=== PATIENT | female | born 1990 | race Hispanic/Latino ===

== ENCOUNTER 2023-06-30 05:03 | Emergency (ER) | payer BC ==
[~2023-06-30] VITALS: Ht 162.6 cm; Wt 86.6 kg
[2023-06-30] MEDS ORDERED: 0.9%NACL 1000ML 1,000 ML IV ONE ×2 (05:16→05:30)
[2023-06-30] MEDS ORDERED: ONDANSETRON 4MG INJ ONE (05:16)
[2023-06-30 05:26] LABS: APPEARANCE,URINE CLOUDY (CLEAR); BILIRUBIN,URINE NEGATIVE (NEGATIVE); COLOR,URINE LIGHT-YELLOW (YELLOW); GLUCOSE, URINE (UA) NEGATIVE (NEGATIVE); KETONES,URINE 60 mg/dL (NEGATIVE); LEUKOCYTE ESTERASE ,URINE NEGATIVE Leu/uL (NEGATIVE); NITRATE,URINE NEGATIVE (NEGATIVE); PROTEIN,URINE NEGATIVE (NEGATIVE); UROBILINOGEN,URINE 0.2 mg/dL (0.2-1.0)
[2023-06-30] MEDS ORDERED: ONDANSETRON 4MG INJ IVP ONE (05:30)
[2023-06-30 05:31] LABS: ADD UA MICROSCOPIC YES
[2023-06-30 05:33] LABS: MUCUS,URINE RARE LPF (None Seen); SQUAMOUS EPITHELIAL CELL,UR RARE /HPF (0-2)
[2023-06-30 05:36] LABS: BASOPHILS # (AUTO) 0.04 K/uL (0.00-0.20); BASOPHILS % (AUTO) 0.3 % (0.0-5.0); EOSINOPHILS # (AUTO) 0.08 K/uL (0.00-0.70); EOSINOPHILS % (AUTO) 0.5 % (0.0-8.0); HEMATOCRIT 38.6 % (36-48); IMMATURE GRANULOCYTE ABSOLUTE 0.07 K/uL (0-1); LYMPHOCYTES # (AUTO) 2.3 K/uL (1.0-4.8); LYMPHOCYTES % (AUTO) 15.5 % (21.0-51.0); MEAN CORPUSCULAR HEMOGLOBIN 30.6 pg (27.0-33.0); MEAN CORPUSCULAR HGB CONC 34.2 g/dL (32.0-36.0); MEAN CORPUSCULAR VOLUME 89.4 fL (79-99); MONOCYTES % (AUTO) 6.4 % (3.0-13.0); NEUTROPHILS # (AUTO) 11.6 K/uL (1.8-7.7); NEUTROPHILS % (AUTO) 76.8 % (40.0-77.0); PLATELET COUNT (AUTO) 296 K/uL (130-400); RED BLOOD CELL COUNT(AUTO) 4.32 MIL/uL (4.00-5.50); RED CELL DISTRIBUTION WIDTH 12.3 % (11.0-15.5); WHITE BLOOD COUNT (AUTO) 15.1 K/uL (4.8-10.8)
[2023-06-30 05:46] LABS: SARS-CoV-2, RNA, NAAT NEGATIVE SARS CoV-2 (NEGATIVE)
[2023-06-30 05:49] LABS: INFLUENZA TYPE A Negative For Type A (NEGATIVE); INFLUENZA TYPE B Negative For Type B (NEGATIVE)
[2023-06-30 05:54] LABS: ALBUMIN 4.1 g/dL (3.5-5.0); BILIRUBIN,TOTAL 0.6 mg/dL (0.2-1.0); CREATININE 0.8 mg/dL (0.5-1.5); POTASSIUM 3.4 mmol/L (3.5-5.1); TOTAL PROTEIN, SERUM 7.7 g/dL (6.0-8.3)
[2023-06-30] MEDS ORDERED: KETOROLAC 30MG VIAL (30MG/ML) IVP ONE (06:30)
[2023-06-30 09:20] VITALS: BP 108/46; PULSE 74; RESP 16; O2SAT 99
[2023-06-30] MEDS ORDERED: ONDA4TAB10 PO (09:45)
== END 2023-06-30 09:53 | disposition home or self-care (01) ==
LOC: EDBD 05:03 → EDH 05:03
DX: R11.2 Nausea with vomiting, unspecified (principal); R10.12 Left upper quadrant pain; Z20.822 Contact with and (suspected) exposure to COVID-19
CPT/HCPCS: 99284; 74176; 96374; 96361; 87635; 96375; 80053; 83690; 85025; 87804 ×2; 81001; 81025; 36415; C9803; J7030; J2405; J1885

== ENCOUNTER 2024-01-19 08:36 | Emergency (ER) | payer BC ==
[~2024-01-19] VITALS: Ht 162.6 cm; Wt 86.2 kg
[~2024-01-19 08:36] MED LIST: ONDA4TAB10 PO
[2024-01-19 08:38] VITALS: BP_SYST 129; PULSE 67; RESP 20
[2024-01-19 09:01] LABS: APPEARANCE,URINE CLEAR (CLEAR); BILIRUBIN,URINE NEGATIVE (NEGATIVE); COLOR,URINE LIGHT-YELLOW (YELLOW); GLUCOSE, URINE (UA) NEGATIVE (NEGATIVE); KETONES,URINE 60 mg/dL (NEGATIVE); LEUKOCYTE ESTERASE ,URINE 25 Leu/uL (NEGATIVE); NITRATE,URINE NEGATIVE (NEGATIVE); OCCULT BLOOD,URINE NEGATIVE (NEGATIVE); PROTEIN,URINE 10 mg/dL (NEGATIVE); UROBILINOGEN,URINE 0.2 mg/dL (0.2-1.0)
[2024-01-19 09:02] LABS: ADD UA MICROSCOPIC YES; HCG,QUALITATIVE URINE NEGATIVE (NEGATIVE)
[2024-01-19 09:08] LABS: MUCUS,URINE RARE LPF (None Seen); SQUAMOUS EPITHELIAL CELL,UR RARE /HPF (0-2)
[2024-01-19 09:09] LABS: BASOPHILS # (AUTO) 0.03 K/uL (0.00-0.20); BASOPHILS % (AUTO) 0.3 % (0.0-5.0); EOSINOPHILS # (AUTO) 0.03 K/uL (0.00-0.70); EOSINOPHILS % (AUTO) 0.3 % (0.0-8.0); HEMATOCRIT 38.8 % (36-48); IMMATURE GRANULOCYTE ABSOLUTE 0.04 K/uL (0-1); LYMPHOCYTES # (AUTO) 1.3 K/uL (1.0-4.8); LYMPHOCYTES % (AUTO) 10.8 % (21.0-51.0); MEAN CORPUSCULAR HEMOGLOBIN 30.7 pg (27.0-33.0); MEAN CORPUSCULAR HGB CONC 34.5 g/dL (32.0-36.0); MEAN CORPUSCULAR VOLUME 88.8 fL (79-99); MONOCYTES # (AUTO) 0.4 K/uL (0.1-1.0); MONOCYTES % (AUTO) 3.8 % (3.0-13.0); NEUTROPHILS # (AUTO) 9.7 K/uL (1.8-7.7); NEUTROPHILS % (AUTO) 84.5 % (40.0-77.0); PLATELET COUNT (AUTO) 299 K/uL (130-400); RED BLOOD CELL COUNT(AUTO) 4.37 MIL/uL (4.00-5.50); RED CELL DISTRIBUTION WIDTH 12.1 % (11.0-15.5); WHITE BLOOD COUNT (AUTO) 11.5 K/uL (4.8-10.8)
[2024-01-19] MEDS: FAMOTIDINE 20MG VIAL IV ONE (09:10)
[2024-01-19] MEDS: MORPHINE 2 MG SYG IVP ONE (09:10)
[2024-01-19] MEDS: METOCLOPRAMIDE 10 MG/2 ML VIAL IVP ONE (09:10)
[2024-01-19] MEDS: LACTATED RINGERS 1000ML 1,095 ML IV ONE (09:11)
[2024-01-19 09:20] LABS: CREATININE 0.8 mg/dL (0.5-1.5); POTASSIUM 3.8 mmol/L (3.5-5.1)
[2024-01-19 09:25] LABS: ALBUMIN 3.8 g/dL (3.5-5.0); BILIRUBIN,TOTAL 0.8 mg/dL (0.2-1.0); TOTAL PROTEIN, SERUM 7.4 g/dL (6.0-8.3)
[2024-01-19] MEDS: MORPHINE 2 MG SYG ONE (09:25)
[2024-01-19] MEDS: 0.9%NACL 1000ML 1,000 ML IV ONE (09:25)
[2024-01-19] MEDS: CEFTRIAXONE 2GM VIAL IVPB ONE (09:38)
[2024-01-19] MEDS ORDERED: CEPH500T PO (10:14)
[2024-01-19] MEDS ORDERED: METO-296 PO (10:14)
[2024-01-19] MEDS ORDERED: POLY17PO4 PO (10:14)
[2024-01-19] MEDS ORDERED: PHEN-847 PO (10:14)
[2024-01-19] MEDS ORDERED: FAMO-136 PO (10:14)
== END 2024-01-19 14:21 | disposition home or self-care (01) ==
LOC: EDH 08:36
DX: N39.0 Urinary tract infection, site not specified (principal); K80.50 Calculus of bile duct without cholangitis or cholecystitis without obstruction; K80.20 Calculus of gallbladder without cholecystitis without obstruction
CPT/HCPCS: 99284; 96365; 96375; 76705; 80053; 83690; 85025; 87088; 81001; 81025; 36415; J7120; J3490; J2270; J0696; J2765

== ENCOUNTER 2025-11-19 17:53 | Emergency (ER) | payer BC ==
[~2025-11-19] VITALS: Ht 160 cm; Wt 73.9 kg
[~2025-11-19 17:53] MED LIST changes: +CEPH500T PO; +FAMO-136 PO; +METO-296 PO; +ONDA-243 PO; -ONDA4TAB10 PO; +PHEN-847 PO; +POLY17PO4 PO
--- NOTE | 2025-11-19 18:23 | ERN ---
ED Note History of Present Illness Stated Complaint: LEFT BREAST PAIN X ONE WEEK Chief Complaint: Breast Problem Time Seen by MD: 18:01 Dictation: PATIENT IS A 35-YEAR-OLD FEMALE COMING IN TODAY WITH COMPLAINTS OF LEFT BREASTS PAIN WITHOUT FEVER CHILLS ONSET WAS ONE WEEK PRIOR TO ARRIVAL. SHE STATES SHE HAD HAD UNPROTECTED SEX AND THEN TOOK A PLAN B TABLET, THE PAIN STARTED THE NEXT DAY. SHE DENIES ANY SKIN CHANGES NIPPLE EVERSION OR DISCHARGE. NO PRIMARY CARE DOCTOR SHE SAID SHE DOES HAVE AN APPOINTMENT WITH A DOCTOR ON November. Allergies: Coded Allergies: No Known Allergies (Unverified Allergy, Unknown, 06/30/23) Home Meds Active Scripts Polyethylene Glycol 3350 (Miralax) 17 Gram Powd.pack, 17 GM PO DAILYDINNER for constipation, #30 PACKET 2 Refills Prov:KATHERIN OLIVEIRA Sr., MD 01/19/24 Famotidine (Pepcid) 20 Mg Tablet, 20 MG PO BID, #60 TAB 2 Refills Prov:KATHERIN OLIVEIRA Sr., MD 01/19/24 Metoclopramide HCl (Reglan) 10 Mg Tablet, 10 MG PO QIDP PRN for NAUSEA, #20 TAB 2 Refills Prov:KATHERIN OLIVEIRA Sr., MD 01/19/24 Phenazopyridine HCl (Pyridium) 200 Mg Tab, 200 MG PO TIDPC, #6 TAB 0 Refills TAKE WITH FOOD TO PREVENT STOMACH UPSET. Prov:KATHERIN OLIVEIRA Sr., MD 01/19/24 Cephalexin (Cephalexin) 500 Mg Tablet, 500 MG PO QID for 10 Days, #40 TAB 0 Refills Prov:KATHERIN OLIVEIRA Sr., MD 01/19/24 Ondansetron (Ondansetron Odt) 4 Mg Tab.rapdis, 4 MG PO Q6HPRN PRN for NAUSEA/VOMITING, #12 TAB Prov:COLLEEN ANDERSON MD 06/30/23 Past Medical History Past Medical History: Gallstones Surgical History: None LMP: Oct 23, 2025 RN Note Reviewed/Agreed w/PFSH: Yes Review of System Dictation CONSTITUTIONAL: NEGATIVE EXCEPT FOR HPI HEAD/FACE: NEGATIVE EXCEPT FOR HPI EENT: NEGATIVE EXCEPT FOR HPI LEFT BREAST PAIN GASTROINTESTINAL/ABDOMINAL: NEGATIVE EXCEPT FOR HPI GENITOURINARY: NEGATIVE EXCEPT FOR HPI MUSCULOSKELETAL: NEGATIVE EXCEPT FOR HPI INTEGUMENTARY: NEGATIVE EXCEPT FOR HPI NEUROLOGICAL/PSYCH: NEGATIVE EXCEPT FOR HPI HEMATOLOGIC/LYMPHATIC: NEGATIVE EXCEPT FOR HPI ALL SYSTEMS NEGATIVE, EXCEPT NOTED ABOVE. 13 POINT REVIEW OF SYSTEMS ASSESSED AND ALL NEGATIVE EXCEPT FOR ABOVE. Initial Vital Sign VS Vital Signs Date Time Temp Pulse Resp B/P (MAP) Pulse Ox O2 Delivery O2 Flow Rate FiO2 11/19/25 17:54 98.1 92 16 136/65 100 Room Air 0 11/19/25 18:04 21 Physical Exam Dictation VITAL SIGNS REVIEWED GENERAL APPEARANCE: ALERT, ORIENTED X 3, NO ACUTE DISTRESS, WELL DEVELOPED, NOURISHED. HEAD AND FACE: NON-TRAUMATIC. EYES: PERRL, PINK CONJUNCTIVAS, EYELID NO TRAUMA, ANTERIOR CHAMBER WITH ARCUS SENILIS. EARS: PINNAS INTACT AND NO SIGNS OF TRAUMA OR ERYTHEMA EAR CANALS CLEAR AND NO DISCHARGE TM NO ERYTHEMA NOSE: NO DISCHARGE, NO BLEEDING. OROPHARYNX: MOUTH NORMAL, TONGUE PINK, PHARYNX CLEAR,NO ERYTHEMA, TONSILS NO EXUDATES, NO ABSCESSES NOTED, MUCOUS MEMBRANE MOIST NECK: SUPPLE, NON-TENDER, NO THYROMEGALY, NO MASSES, NO JVD, NO BRUITS BREAST:DEFERRED CHEST:NO TENDERNESS, NO CREPITUS, NO PARADOXICAL MOVEMENT, NO RETRACTIONS LUNGS:CLEAR, WELL-VENTILATED, SYMMETRIC, NO RALES, NO WHEEZING, NO RHONCHI, NO STRIDOR, GOOD BREATH SOUNDS BILATERALLY HEART: REGULAR RATE, REGULAR RHYTHM, NO MURMUR, NO GALLOPS VASCULAR: NO PERIPHERAL EDEMA, ABDOMEN: SOFT, POSITIVE BOWEL SOUNDS, NONDISTENDED, NO GUARDING, NONTENDER, NO REBOUND, NO MASSES NO HEPATOMEGALY, NO SPLENOMEGALY, NO EVANS'S SIGN, NO HERNIAS. RECTAL: DEFERRED GENITAL: DEFERRED NEUROLOGICAL: NORMAL SPEECH, MOTOR FUNCTION INTACT, SENSORY FUNCTION INTACT MUSCULOSKELETAL: NECK NONTENDER, FULL RANGE OF MOTION, BACK NONTENDER, FULL RANGE OF MOTION, EXTREMITIES: NONTENDER, FULL RANGE OF MOTION SKIN: COLOR PINK, DRY, NO TURGOR, NO RASH, NO LACERATIONS, NO ABRASIONS, NO CONTUSIONS. LYMPHATIC: DEFERRED Results (Laboratory/Radiology) Laboratory/Radiology Laboratory Tests Test 11/19/25 18:29 White Blood Count 9.0 K/uL (4.8-10.8) Red Blood Count 4.33 MIL/uL (4.00-5.50) Hemoglobin 13.4 g/dL (12.0-16.0) Hematocrit 39.9 % (36-48) Mean Corpuscular Volume 92.1 fL (79-99) Mean Corpuscular Hemoglobin 30.9 pg (27.0-33.0) Mean Corpuscular Hemoglobin Concent 33.6 g/dL (32.0-36.0) Red Cell Distribution Width 12.7 % (11.0-15.5) Platelet Count 291 K/uL (130-400) Mean Platelet Volume 10.0 fL (7.5-10.5) Immature Granulocyte % (Auto) 0.2 % (0-1) Neutrophils (%) (Auto) 70.0 % (40.0-77.0) Lymphocytes (%) (Auto) 20.1 % (21.0-51.0) L Monocytes (%) (Auto) 7.5 % (3.0-13.0) Eosinophils (%) (Auto) 2.1 % (0.0-8.0) Basophils (%) (Auto) 0.1 % (0.0-5.0) Neutrophils # (Auto) 6.3 K/uL (1.8-7.7) Lymphocytes # (Auto) 1.8 K/uL (1.0-4.8) Monocytes # (Auto) 0.7 K/uL (0.1-1.0) Eosinophils # (Auto) 0.19 K/uL (0.00-0.70) Basophils # (Auto) 0.01 K/uL (0.00-0.20) Absolute Immature Granulocyte (auto 0.02 K/uL (0-1) Nucleated Red Blood Cells 0.0 % (0.0-0.19) Sodium Level 140 mmol/L (136-145) Potassium Level 4.1 mmol/L (3.5-5.1) Chloride Level 106 mmol/L (101-111) Carbon Dioxide Level 27 mmol/L (21-32) Blood Urea Nitrogen 15 mg/dL (7-18) Creatinine 0.6 mg/dL (0.5-1.0) Glomerular Filtration Rate Calc 120 mL/min (>90) Random Glucose 86 mg/dL (70-105) Total Calcium 8.4 mg/dL (8.5-10.1) L Serum Test, Qualitative NEGATIVE (NEGATIVE) 2100/LEFT BREAST ULTRASOUND DEMONSTRATES A SMALL SWOLLEN LYMPH NODE IN THE AXILLA BREAST IS NEGATIVE Labs Reviewed?: Yes ED Course ED Course Orders Procedure Category Date Status Time Testing, LAB 11/19/25 Complete Serum Hcg 18:18 Hydrocodone/Apap PHA 11/19/25 Complete 5/325 ([place] 5/325mg) 18:30 Cbc With Differential LAB 11/19/25 Complete 18:24 Basic Metabolic Panel LAB 11/19/25 Complete 18:24 Us Breast Complete US 11/19/25 Taken Unilateral 20:38 Current Medications Medications (Trade) Dose Ordered Sig/Shraddha Route PRN Reason Start Time Stop Time Status Last Admin Dose Admin Acetaminophen/ Hydrocodone Bitart (NORco 5/325MG) 1 tab ONCE ONCE PO 11/19/25 18:30 11/19/25 18:31 DC 11/19/25 18:34 Vital Signs Date Time Temp Pulse Resp B/P (MAP) Pulse Ox O2 Delivery O2 Flow Rate FiO2 11/19/25 18:04 98.1 88 16 129/77 100 Room Air* 0 21 11/19/25 17:54 98.1 92 16 136/65 100 Room Air 0 Medical Decision Making [facility] MEDICAL DISCHARGE MAKING BASED ON BASIC LABS TO INCLUDE HCG AND ULTRASOUND OF LEFT BREAST. LABS ARE COMPLETELY UNREMARKABLE NEGATIVE HCG ULTRASOUND DEMONSTRATES A LYMPH NODE TO THE LEFT AXILLA NOTE THAT THE BREAST WAS NOT EXAMINED BY THE CRITICAL CARE UNIT NURSE DX & DISP Disposition: Discharge Departure Impression: Primary Impression: Lateral axillary lymphadenopathy Additional Impression: Mastodynia of left breast Condition: Stable Scripts Ibuprofen (Ibuprofen 800 mg Tab) 800 Mg Tab 800 MG PO Q8H PRN for fever or pain, #30 TAB 0 Refills Prov: [facility] NURSE 11/19/25 Additional Instructions: FOLLOW-UP WITH PRIMARY CARE PROVIDER IN 1 TO 2 DAYS. TAKE MEDICATIONS DIRECT ED HERE IN THE EMERGENCY ROOM. OKAY TO CONTINUE HOME MEDICATIONS UNLESS OTHERWISE DISCUSSED DURING YOUR VISIT IN THE EMERGENCY ROOM TODAY. RETURN TO YOUR NEAREST EMERGENCY ROOM IF SYMPTOMS WORSEN OR IF THERE IS NO IMPROVEMENT. CALL 911 IF YOU NEED IMMEDIATE ASSISTANCE. TAKE TYLENOL OR MOTRIN [id number] NEEDED AND IF NO CONTRAINDICATIONS ARE PRESENT. INCREASE ORAL HYDRATION. A WOUND CULTURE OR URINE CULTURE WAS ORDERED HERE IN THE EMERGENCY ROOM DEPARTMENT PLEASE FOLLOW-UP WITH PRIMARY CARE PROVIDER AND ADVISE THEM TO GET REPEAT PORTS FROM OUR FACILITY. IF YOU HAD ANY ROSY WRAP/SPLINTS THAT WERE APPLIED HERE, PLEASE DO NOT REMOVE THEM UNTIL YOU SEE YOUR PRIMARY CARE OR SPECIALTY. TAKE IBUPROFEN NEEDED FOR PAIN. CALL GENERAL SURGEON FOR APPOINTMENT AND FOLLOW UP Referrals: VIDYA MALDONADO (PCP) MARIVEL MARMOLEJO DO Time of Disposition: 21:01 I have reviewed the case, and I agree with, Diagnosis and Plan [facility] NURSE Nov 19, 2025 18:23
[2025-11-19] MEDS: HYDROcodone/APAP 5/325 1 TAB TABLET PO ONE (18:34)
[2025-11-19 18:36] LABS: IMMATURE GRANULOCYTE ABSOLUTE 0.02 K/uL (0-1); NUCLEATED RED BLOOD CELLS 0.0 % (0.0-0.19); PLATELET COUNT (AUTO) 291 K/uL (130-400); RED BLOOD CELL COUNT(AUTO) 4.33 MIL/uL (4.00-5.50); RED CELL DISTRIBUTION WIDTH 12.7 % (11.0-15.5); WHITE BLOOD COUNT (AUTO) 9.0 K/uL (4.8-10.8)
[2025-11-19 18:48] LABS: CREATININE 0.6 mg/dL (0.5-1.0); GLOMERULAR FILTR. RATE CALC 120.0 mL/min (>90); GLUCOSE,RANDOM 86.0 mg/dL (70-105); SODIUM SERUM 140.0 mmol/L (136-145); UREA NITROGEN, BLOOD 15.0 mg/dL (7-18)
[2025-11-19] MEDS ORDERED: IBUP-2077 PO (21:02)
[2025-11-19 21:08] VITALS: BP 122/72; PULSE 82; RESP 16; TEMP 98.1; O2SAT 100
--- NOTE | 2025-11-19 21:53 | HMCIMG ---
EXAM: Ultrasound Left Breast - Complete CLINICAL HISTORY: Left lateral breast pain for one week. TECHNIQUE: Comprehensive sonographic evaluation of the entire left breast, including the retroareolar region, was performed using a high-frequency linear transducer with image documentation. COMPARISON: None available. FINDINGS: Solid Masses: None identified. Cystic Masses: None identified. Architectural Distortion: None seen. Acoustic Shadowing: None. Skin Thickening: None. Axillary Adenopathy: None detected. IMPRESSION: Normal ultrasound examination of the left breast. No sonographic abnormality identified to explain the patients pain. BI-RADS Category: Category 1 - Negative. /[place]
== END 2025-11-19 21:09 | disposition home or self-care (01) ==
LOC: EDH 17:53
DX: R59.0 Localized enlarged lymph nodes (principal); N64.4 Mastodynia
CPT/HCPCS: 36415; 76641; 80048; 84703; 85025; 99284